=== PATIENT | female | born 1985 | race American Indian/Alaskan Native ===

== ENCOUNTER 2017-10-22 22:14 | Emergency (ER) | payer OTHER ==
[2017-10-22 23:37] VITALS: BP 140/95
[2017-10-23] MEDS ORDERED: TORADOL IM ONE (03:23)
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
== END 2017-10-23 03:42 | disposition home or self-care (01) ==
LOC: ED 22:14
DX: M54.2 Cervicalgia (principal); V89.2XXA Person injured in unspecified motor-vehicle accident, traffic, initial encounter; Y93.89 Activity, other specified; Y92.89 Other specified places as the place of occurrence of the external cause; Y99.8 Other external cause status; F17.200 Nicotine dependence, unspecified, uncomplicated
CPT/HCPCS: 96372; 99282; J1885